=== PATIENT | male | born 1985 | race American Indian/Alaskan Native ===

== ENCOUNTER 2017-09-17 04:32 | Emergency (ER) | payer SELFPAY ==
[2017-09-17] MEDS ORDERED: Lidocaine 2% with EPINEPHrine 1:100,000 20 ML MDV INFILT ONE (04:33)
[2017-09-17] MEDS ORDERED: Diphtheria,Pertussis(Acell),Tetanus Vaccine 0.5 ML SDV IM ONE (06:22)
--- NOTE | 2017-09-17 06:29 | EDM.PDOC ---
ED HPI GENERAL MEDICAL PROBLEM - General Chief Complaint: Laceration Stated Complaint: FELL, HEAD INJURY Time Seen by Provider: 09/17/17 04:40 Source of Information: Reports: Patient, Family History Limitations: Reports: Other (Intoxicated.) - History of Present Illness INITIAL COMMENTS - FREE TEXT/NARRATIVE: Patient was drinking with his at home tonight and became intoxicated. He fell off of his barstool and hit the back of his head and got knocked out. He has a laceration on the back of his head. He is still intoxicated but is cooperative and is able to talk and communicate coherently. No other pain or complaints. Onset: Today Onset Date: 09/17/17 Onset Time: 04:00 Duration: Minutes: (40) Location: Reports: Head, Generalized Quality: Reports: Sharp Severity: Mild Improves with: Reports: None Worsens with: Reports: None Context: Reports: Other (Drinking and fell off barstool.) Associated Symptoms: Reports: Other (Intoxicated.) - Related Data Allergies Allergy/AdvReac Type Severity Reaction Status Date / Time No Known Allergies Allergy Verified 09/17/17 05:03 Home Meds: Home Meds NK [No Known Home Meds] 09/17/17 [History] Past Medical History - Past Health History Medical/Surgical History: Denies Medical/Surgical History Social & Family History - Family History Family Medical History: Noncontributory - Tobacco Use Smoking Status *Q: Never Smoker - Caffeine Use Caffeine Use: Reports: Coffee - Recreational Drug Use Recreational Drug Use: No Recreational Drug Type: Reports: Marijuana/Hashish Recreational Drug Use Frequency: Socially ED ROS GENERAL - Review of Systems Review Of Systems: See Below Constitutional: Reports: Other (Intoxicated.) HEENT: Reports: No Symptoms Respiratory: Reports: No Symptoms Cardiovascular: Reports: No Symptoms Endocrine: Reports: No Symptoms GI/Abdominal: Reports: No Symptoms : Reports: No Symptoms Musculoskeletal: Reports: No Symptoms Skin: Reports: Wound Neurological: Reports: No Symptoms Psychiatric: Reports: No Symptoms Hematologic/Lymphatic: Reports: No Symptoms Immunologic: Reports: No Symptoms ED EXAM, SKIN/RASH Exam: See Below Exam Limited By: Altered Mental Status (Intoxicated) General Appearance: Alert, WD/WN, No Apparent Distress Eye Exam: Bilateral Eye: EOMI, Normal Fundi, Normal Inspection, PERRL Ears: Normal External Exam, Normal Canal, Hearing Grossly Normal, Normal TMs Nose: Normal Inspection, Normal Mucosa, No Blood Throat/Mouth: Normal Inspection, Normal Lips, Normal Teeth, Normal Gums, Normal Oropharynx, Normal Voice, No Airway Compromise Head: Other (3 cm L shaped laceration in the posterior scalp.) Neck: Normal Inspection, Supple, Non-Tender, Full Range of Motion Respiratory/Chest: No Respiratory Distress, Lungs Clear, Normal Breath Sounds, No Accessory Muscle Use, Chest Non-Tender Cardiovascular: Normal Peripheral Pulses, Regular Rate, Rhythm, No Edema, No Gallop, No JVD, No Murmur, No Rub Peripheral Pulses: 4+: Posterior Tibial (L), Posterior Tibial (R), Dorsalis Pedis (L), Dorsalis Pedis (R) GI/Abdominal: Normal Bowel Sounds, Soft, Non-Tender, No Organomegaly, No Distention, No Abnormal Bruit, No Mass Back Exam: Normal Inspection, Full Range of Motion, NT Extremities: Normal Inspection, Normal Range of Motion, Non-Tender, No Pedal Edema, Normal Capillary Refill Neurological: Alert, Oriented, CN II-XII Intact, Normal Cognition, Normal Gait, Normal Reflexes, No Motor/Sensory Deficits Psychiatric: Normal Affect, Normal Mood Skin: Wound/Incision (3 cm L-shaped laceration posterior scalp.) Location, Skin: Head ED SKIN PROCEDURES - Laceration/Wound Repair Posterior Midline [place] Head Lac/Wound length In cm: 3 Appearance: Subcutaneous, Other (L shaped) Anesthetic Type: Local Local Anesthesia - Lidocaine (Xylocaine): 2% with EPI Local Anesthetic Volume: 3cc Skin Prep: Chlorhexidine (Hibiciens) Exploration/Debridement/Repair: Wound Explored, In a Bloodless Field, Explored to Base, No Foreign Material Found Closed with: Camilo (4) Course - Vital Signs Text/Narrative:: Uneventful ED course. Went over wound care and gave him an Adacel immunization. He will return to PCP to have camilo removed in [address] was normal and his labs were normal except for a blood alcohol of 230. Last Recorded V/S: Last Vital Signs Temp 36.7 C 09/17/17 04:35 Pulse 87 09/17/17 04:35 Resp 17 09/17/17 04:35 BP 138/86 09/17/17 04:35 Pulse Ox 95 09/17/17 04:35 - Orders/Labs/Meds Orders: Active Orders 24 hr Category Date Time Status Vaccines to be Administered [RC] PER UNIT ROUTINE Care 09/17/17 06:23 Ordered Head wo Cont [CT] Stat Exams 09/17/17 04:44 Taken Diphth,Pertuss(Acell),Tet Vac [Adacel] Med 09/17/17 06:22 Once 0.5 ml IM .ONCE ONE Labs: Laboratory Tests 09/17/17 09/17/17 09/17/17 Range/Units 04:55 04:55 04:55 WBC 4.7 (4.5-12.0) X10-3/uL RBC 4.56 (4.30-5.75) x10(6)uL Hgb 14.3 (11.5-15.5) g/dL Hct 40.8 (30.0-51.3) % MCV 89.6 (80-96) fL MCH 31.3 (27.7-33.6) pg MCHC 34.9 (32.2-35.4) g/dL RDW 11.9 (11.5-15.5) % Plt Count 191 (125-369) X10(3)uL MPV 9.5 (7.4-10.4) fL Neut % (Auto) 51.8 (46-82) % Lymph % (Auto) 38.3 H (13-37) % [place] % (Auto) 6.8 (4-12) % Eos % (Auto) 2 (1.0-5.0) % Baso % (Auto) 1 (0-2) % Neut # (Auto) 2.5 (1.6-8.3) # Lymph # (Auto) 1.8 (0.6-5.0) # [place] # (Auto) 0.3 (0.0-1.3) # Eos # (Auto) 0.1 (0.0-0.8) # Baso # (Auto) 0.0 (0.0-0.2) # Sodium 143 (135-145) mmol/L Potassium 3.6 (3.5-5.3) mmol/L Chloride 110 (100-110) mmol/L Carbon Dioxide 24 (23-29) mmol/L BUN 11 (5-20) mg/dL Creatinine 0.7 (0.6-1.3) mg/dL Est Cr Clr Drug Dosing TNP Estimated GFR (MDRD) > 60 (>60) BUN/Creatinine Ratio 15.7 (9-20) Glucose 112 (80-116) mg/dL Calcium 8.9 (8.6-10.2) mg/dL Total Bilirubin 0.1 (0.1-1.3) mg/dL AST 33 H (5-27) IU/L ALT 29 H (14-26) IU/L Alkaline Phosphatase 61 (56-112) IU/L Total Protein 7.6 (6.0-8.0) g/dL Albumin 4.5 (3.5-5.2) g/dL Globulin 3.1 g/dL Albumin/Globulin Ratio 1.5 Ethyl Alcohol 0.23 H* (<0.01) % Departure - Departure Time of Disposition: 06:36 Disposition: Home, Self-Care 01 Condition: Good Clinical Impression: Laceration, Concussion, Alcohol intoxication - Discharge Information Referrals: PCP,None [Primary Care Provider] - - My Orders Last 24 Hours: My Active Orders 09/17/17 04:44 Head wo Cont [CT] Stat 09/17/17 06:22 Diphth,Pertuss(Acell),Tet Vac [Adacel] 0.5 ml IM .ONCE ONE 09/17/17 06:23 Vaccines to be Administered [RC] PER UNIT ROUTINE - Assessment/Plan Last 24 Hours: My Active Orders 09/17/17 04:44 Head wo Cont [CT] Stat 09/17/17 06:22 Diphth,Pertuss(Acell),Tet Vac [Adacel] 0.5 ml IM .ONCE ONE 09/17/17 06:23 Vaccines to be Administered [RC] PER UNIT ROUTINE
[2017-09-17 06:57] VITALS: BP 110/59
== END 2017-09-17 06:40 | disposition home or self-care (01) ==
LOC: FB.ED 04:32
DX: S01.01XA Laceration without foreign body of scalp, initial encounter (principal); F10.129 Alcohol abuse with intoxication, unspecified; Z23 Encounter for immunization; Y90.1 Blood alcohol level of 20-39 mg/100 ml; W08.XXXA Fall from other furniture, initial encounter; Y92.009 Unspecified place in unspecified non-institutional (private) residence as the place of occurrence of the external cause
CPT/HCPCS: 12002; 36415; 70450; 80053; 85025; 90472; 90715; 99283; G0480; 12001

== ENCOUNTER 2018-03-09 16:00 | Emergency (ER) | payer OTHER ==
[2018-03-09] MEDS ORDERED: Ketorolac 60 MG/2 ML SDV IM ONE (16:08)
[2018-03-09 16:17] VITALS: BP 142/90
--- NOTE | 2018-03-09 16:19 | EDM.PDOC ---
ED HPI GENERAL MEDICAL PROBLEM - General Stated Complaint: INJURED RT HAND AT WORK Time Seen by Provider: 03/09/18 16:03 Source of Information: Reports: Patient History Limitations: Reports: No Limitations - History of Present Illness INITIAL COMMENTS - FREE TEXT/NARRATIVE: c/o R hand injury working, fell, put out R hand to break fall, landed on a screw pointing upward, screw was ~3" long, pt immediately pulled his hand out, pain now at 5th MC does not remember when he had his last Td, last Td given 6m ago as per [employer] - Related Data Allergies Allergy/AdvReac Type Severity Reaction Status Date / Time No Known Allergies Allergy Verified 03/09/18 16:12 Home Meds: Home Meds Amoxicillin/Clavulanate K [Augmentin 875-125 MG] 1 tab PO BID #14 tablet [Rx] Past Medical History - Past Health History Medical/Surgical History: Denies Medical/Surgical History Social & Family History - Family History Family Medical History: Noncontributory - Caffeine Use Caffeine Use: Reports: Coffee ED ROS GENERAL - Review of Systems Review Of Systems: See Below Constitutional: Reports: No Symptoms HEENT: Reports: No Symptoms Respiratory: Reports: No Symptoms Cardiovascular: Reports: No Symptoms Endocrine: Reports: No Symptoms GI/Abdominal: Reports: No Symptoms : Reports: No Symptoms Musculoskeletal: Reports: Hand Pain Skin: Reports: No Symptoms Neurological: Reports: No Symptoms Psychiatric: Reports: No Symptoms Hematologic/Lymphatic: Reports: No Symptoms Immunologic: Reports: No Symptoms ED EXAM, GENERAL - Physical Exam Exam: See Below Exam Limited By: No Limitations General Appearance: Alert, WD/WN, Moderate Distress Respiratory/Chest: No Respiratory Distress Cardiovascular: Regular Rate, Rhythm Back Exam: Normal Inspection, Full Range of Motion, NT Extremities: Other (L hand with 4 mm entry wound at hypothenar eminence over 5th MT, no bleeding, no f.b., tender over 5th MT, less tender over adjacent soft tissue, FROM fingers and wrist, m/s intact) Course - Vital Signs Last Recorded V/S: Last Vital Signs Temp 36.2 C 03/09/18 16:12 Pulse 69 03/09/18 16:12 Resp 16 03/09/18 16:12 BP 142/90 H 03/09/18 16:12 Pulse Ox 100 03/09/18 16:12 - Orders/Labs/Meds Orders: Active Orders 24 hr Category Date Time Status Hand Comp Min 3V Rt [CR] Stat Exams 03/09/18 16:09 Ordered Meds: Medications Discontinued Medications Generic Name Dose Route Start Last Admin Trade Name Lloyd PRN Reason Stop Dose Admin Ketorolac Tromethamine 60 mg 03/09/18 16:08 03/09/18 16:25 Toradol IM 03/09/18 16:09 60 mg ONETIME ONE Administration - Re-Assessments/Exams Free Text/Narrative Re-Assessment/Exam: 03/09/18 16:52 XR R hand, neg, periosteum intact, no f.b., works construction, 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, pt agrees numbness is much less, less pain after the Toradol Departure - Departure Time of Disposition: 16:53 Disposition: Home, Self-Care 01 Condition: Good Clinical Impression: Puncture wound, hand Qualifiers: Foreign body presence: without foreign body Laterality: right - Discharge Information Prescriptions: Amoxicillin/Clavulanate K [Augmentin 875-125 MG] 1 tab PO BID #14 tablet Instructions: Puncture Wound Referrals: PCP,None [Primary Care Provider] - Additional Instructions: For pain and inflammation and swelling, take ibuprofen 200 mg 3 tabs and acetaminophen 500 mg 2 tabs 4 times a day for 7 days, longer if needed. For potential infection, take Augmentin 875/125 mg 1 tab 2 times a day for 7 days. No work for 3 days. Use ice for 10 minutes 4 times a day for 2 days. Do not use hand for next 3 days. Go to Emergency Room in [place] if you have increase in pain, redness, swelling, warmth, fever or drainage as the hand surgeon may need to open the wound to clean it out. See your physician here in town if you are not much better in 4 days and back to normal in 7 days. - My Orders Last 24 Hours: My Active Orders 03/09/18 16:09 Hand Comp Min 3V Rt [CR] Stat - Assessment/Plan Last 24 Hours: My Active Orders 03/09/18 16:09 Hand Comp Min 3V Rt [CR] Stat
--- NOTE | 2018-03-10 09:08 | CR ---
INDICATION: Fell onto screw, pain at mid MC. RIGHT HAND: Three views of the right hand were obtained and revealed soft tissue swelling overlying the distal metacarpals dorsally. An underlying bone or joint abnormality was not identified - no acute fracture or dislocation was seen. MTDD
== END 2018-03-09 17:07 | disposition home or self-care (01) ==
LOC: FB.ED 16:00
DX: S61.432A Puncture wound without foreign body of left hand, initial encounter (principal); W19.XXXA Unspecified fall, initial encounter; W22.8XXA Striking against or struck by other objects, initial encounter
CPT/HCPCS: 73130; 96372; 99283; J1885

== ENCOUNTER 2020-06-09 11:44 | Emergency (ER) | payer OTHER ==
[2020-06-09] MEDS ORDERED: Ondansetron 4 MG Tab.DIS PO ONE ×2 (11:45→14:58)
[2020-06-09] MEDS ORDERED: HYDROmorphone 2 MG/ML SDV ONE (11:50)
--- NOTE | 2020-06-09 11:51 | EDM.PDOC ---
ED HPI GENERAL MEDICAL PROBLEM - General Stated Complaint: TRAUMA ALERT Time Seen by Provider: 06/09/20 11:47 Source of Information: Reports: Patient History Limitations: Reports: No Limitations - History of Present Illness INITIAL COMMENTS - FREE TEXT/NARRATIVE: pt was brought in by his poss , he had accidental fall off 6 fee flour , c/o sever right ankle/heal pain and head injury, no LOC or any other injuries, denies any neuro/ CV/ resp sx or any medical concerns. - Related Data Allergies Allergy/AdvReac Type Severity Reaction Status Date / Time No Known Allergies Allergy Verified 06/09/20 12:51 Home Meds: Home Meds oxyCODONE HCl/Acetaminophen [Percocet 5-325 mg Tablet] 1 - 2 each PO Q6HR PRN #20 tablet 06/09/20 [Rx] Past Medical History - Past Health History Medical/Surgical History: Denies Medical/Surgical History Social & Family History - Family History Family Medical History: Noncontributory - Caffeine Use Caffeine Use: Reports: Coffee ED ROS GENERAL - Review of Systems Review Of Systems: See Below Constitutional: Reports: No Symptoms. Denies: Fever, Chills HEENT: Reports: No Symptoms Respiratory: Reports: No Symptoms Cardiovascular: Reports: No Symptoms GI/Abdominal: Reports: No Symptoms Musculoskeletal: Reports: Joint Pain Skin: Reports: No Symptoms Neurological: Reports: No Symptoms ED EXAM, GENERAL - Physical Exam Exam: See Below Exam Limited By: No Limitations General Appearance: Moderate Distress, Severe Distress Eye Exam: Bilateral Eye: Normal Inspection Ears: Normal External Exam, Normal TMs Nose: Normal Inspection Throat/Mouth: Normal Inspection, Normal Oropharynx Head: Normocephalic, Other (pt has swelling and contusion over the right eyebrow/ forhead area ) Neck: Normal Inspection, Supple, Non-Tender Respiratory/Chest: No Respiratory Distress, Lungs Clear Cardiovascular: Normal Peripheral Pulses, Regular Rate, Rhythm GI/Abdominal: Normal Bowel Sounds, Soft, Non-Tender Extremities: Other (tender eric round right ankle. ) Neurological: Alert, Oriented, CN II-XII Intact Skin Exam: Warm, Dry, Other (skin is intact .) Course - Vital Signs Text/Narrative:: head CT shows no acute findings , xrays shows calcaneus fracture. pt is comfortable after IV Dilaudid . surgical boot with lots of padding was applied at heel area , crutches were provided. Dr. Morales was consulted and would like to follow up with him at his at clinic this week. rest and elevation were advised and Rx on percocet was given. - Orders/Labs/Meds Orders: Active Orders 24 hr Category Date Time Status Ang Lower Extremity Rt [CT] Stat Exams 06/09/20 13:35 Ordered Knee 1V or 2V Rt [CR] Stat Exams 06/09/20 13:13 Taken Sodium Chloride 0.9% [Normal Saline] 1,000 ml Med 06/09/20 11:52 Active IV .BOLUS Medication Orders Sodium Chloride (Normal Saline) 1,000 mls @ 999 drops/hr IV .BOLUS ONE Stop: 06/10/20 02:52 Last Admin: 06/09/20 12:16 Dose: 999 drops/hr Documented by: CIRILO Labs: Laboratory Tests 06/09/20 06/09/20 Range/Units 11:50 11:50 WBC 8.4 (4.5-12.0) X10-3/uL RBC 4.80 (4.30-5.75) x10(6)uL Hgb 14.8 (13.5-17.8) g/dL Hct 44.9 (30.0-51.3) % MCV 93.6 (80-96) fL MCH 30.9 (27.7-33.6) pg MCHC 33.0 (32.2-35.4) g/dL RDW 11.9 (11.5-15.5) % Plt Count 290 (125-369) X10(3)uL MPV 8.9 (7.4-10.4) fL Neut % (Auto) 58.1 (46-82) % Lymph % (Auto) 33.1 (13-37) % [place] % (Auto) 7.3 (4-12) % Eos % (Auto) 1 (1.0-5.0) % Baso % (Auto) 1 (0-2) % Neut # (Auto) 4.9 (1.6-8.3) # Lymph # (Auto) 2.8 (0.6-5.0) # [place] # (Auto) 0.6 (0.0-1.3) # Eos # (Auto) 0.1 (0.0-0.8) # Baso # (Auto) 0.0 (0.0-0.2) # Sodium 140 (135-145) mmol/L Potassium 3.8 (3.5-5.3) mmol/L Chloride 102 (100-110) mmol/L Carbon Dioxide 27 (21-32) mmol/L BUN 10 (7-18) mg/dL Creatinine 0.9 (0.70-1.30) mg/dL Est Cr Clr Drug Dosing TNP Estimated GFR (MDRD) > 60 (>60) BUN/Creatinine Ratio 11.1 (9-20) Glucose 132 H (80-116) mg/dL Calcium 8.6 (8.6-10.2) mg/dL Total Bilirubin 0.5 (0.1-1.3) mg/dL AST 22 (5-25) IU/L ALT 27 (12-36) U/L Alkaline Phosphatase 80 (56-112) IU/L Total Protein 8.1 H (6.0-8.0) g/dL Albumin 4.2 (3.5-5.2) g/dL Globulin 3.9 g/dL Albumin/Globulin Ratio 1.1 Meds: Medications Generic Name Dose Route Start Last Admin Trade Name Freq PRN Reason Stop Dose Admin Sodium Chloride 1,000 mls @ 999 drops/hr 06/09/20 11:52 06/09/20 12:16 Normal Saline IV 06/10/20 02:52 999 drops/hr .BOLUS ONE Administration Discontinued Medications Generic Name Dose Route Start Last Admin Trade Name Freq PRN Reason Stop Dose Admin Hydromorphone HCl 1 mg 06/09/20 11:52 06/09/20 12:14 Dilaudid IVPUSH 06/09/20 11:53 1 mg ONETIME ONE Administration Hydromorphone HCl Confirm 06/09/20 11:50 06/09/20 12:14 Dilaudid Administered 06/09/20 11:51 Not Given Dose 2 mg .ROUTE .STK-MED ONE Hydromorphone HCl 1 mg 06/09/20 12:21 06/09/20 12:26 Dilaudid IVPUSH 06/09/20 12:22 1 mg ONETIME ONE Administration Hydromorphone HCl 1 mg 06/09/20 13:03 06/09/20 13:05 Dilaudid IVPUSH 06/09/20 13:04 1 mg ONETIME ONE Administration Hydromorphone HCl 1 mg 06/09/20 13:37 06/09/20 13:42 Dilaudid IVPUSH 06/09/20 13:38 2 mg ONETIME ONE Administration Departure - Departure Time of Disposition: 13:06 Disposition: Home, Self-Care 01 Clinical Impression: Avulsion fracture of right calcaneus - Discharge Information Prescriptions: oxyCODONE HCl/Acetaminophen [Percocet 5-325 mg Tablet] 1 - 2 each PO Q6HR PRN #20 tablet PRN Reason: Pain - My Orders Last 24 Hours: My Active Orders 06/09/20 11:52 Sodium Chloride 0.9% [Normal Saline] 1,000 ml IV .BOLUS 06/09/20 13:13 Knee 1V or 2V Rt [CR] Stat 06/09/20 13:35 Ang Lower Extremity Rt [CT] Stat - Assessment/Plan Last 24 Hours: My Active Orders 06/09/20 11:52 Sodium Chloride 0.9% [Normal Saline] 1,000 ml IV .BOLUS 06/09/20 13:13 Knee 1V or 2V Rt [CR] Stat 06/09/20 13:35 Ang Lower Extremity Rt [CT] Stat
[2020-06-09] MEDS ORDERED: HYDROmorphone 2 MG/ML SDV IVPUSH ONE ×4 (11:52→13:37)
[2020-06-09] MEDS ORDERED: Sodium Chloride 0.9% 1,000 ML IV ONE (11:52)
--- NOTE | 2020-06-09 13:34 | CT ---
INDICATION: Head trauma. CT HEAD WITHOUT CONTRAST: Spiral 3.75 mm axial sections were obtained through the brain without contrast with sagittal and coronal reconstructions and axial reconstructions 06/09/20 and compared with 09/17/17. Total exam DLP was 1425.39 mGy-cm. Mastoid air cells were well aerated. There is marked thickening of the linings of the maxillary antra bilaterally with an air-fluid level and frothy material within the left maxillary antrum. Sphenoidal and ethmoidal air cells were well aerated. Thickening of the lining of the left frontal air cell is noted. Nasal septal deviation to the left is noted. No cranial fracture site was identified. The orbits appear to be intact. No cranial fracture site was identified. No shift of midline structures, ventricular abnormalities or change in the appearance of the brain was suggested. No bleeding site or hematoma was seen. A small low-density abnormality in the occipital lobe on the left may simply represent an extension of the occipital horn of the left lateral ventricle and was present previously. IMPRESSION: 1. No acute intracranial abnormality. 2. Bilateral maxillary and left frontal sinusitis - possibly acute. MTDD
--- NOTE | 2020-06-09 13:36 | CR ---
INDICATION: Fall. RIGHT CALCANEUS: Axial and lateral views of the calcaneus reveal a comminuted fracture of the calcaneus after the midportion of the calcaneus with suggestion of some impaction of fracture fragments with deformity of moderate degree. IMPRESSION: Comminuted calcaneal fracture with some deformity. Report was called to Dr. Wood at 12:30 hours. EVETTE
--- NOTE | 2020-06-09 13:38 | CR ---
INDICATION: Ankle injury. RIGHT ANKLE: Frontal and lateral views of the right ankle reveal a comminuted fracture of the calcaneus extending through the subtalar joint area posteriorly with some minimal impaction of fracture fragments noted. The ankle mortise appeared grossly intact. The report was called to Dr. Wood at 12:30 hours. EVETTE
[2020-06-09] MEDS ORDERED: Ondansetron 4 MG Tab.DIS ONE (14:58)
[2020-06-09 15:54] VITALS: BP 158/114; PULSE 123
--- NOTE | 2020-06-09 19:22 | CR ---
INDICATION: Fall. RIGHT KNEE: Frontal and lateral views of the right knee revealed a comminuted fracture of the inferolateral aspect of the patella with [id number] separation of the comminuted fracture fragments. Overall they appear to be in adequate position and alignment. Joint effusion is suggested. No other acute bone or joint abnormality was identified. MTDD
--- NOTE | 2020-06-09 19:27 | CT ---
CT RIGHT LOWER EXTREMITY INDICATION: Heel fracture. Spiral 2.5 mm axial sections were obtained through the right foot with sagittal and coronal reconstructions revealing a rather severely comminuted fracture through the mid portion of the mid and distal portion of the calcaneus with relatively minimal distraction of fracture fragments. The subtalar joints appear to be largely intact. The talus appears to be intact. The ankle mortise appears to be intact. IMPRESSION: Severely comminuted somewhat V or U shaped fracture through the mid and anterior--distal portion of the calcaneus with the subtalar joint areas largely intact. MTDD
== END 2020-06-09 14:45 | disposition home or self-care (01) ==
LOC: FB.ED 11:44
DX: S92.001A Unspecified fracture of right calcaneus, initial encounter for closed fracture (principal); S82.001A Unspecified fracture of right patella, initial encounter for closed fracture; W17.89XA Other fall from one level to another, initial encounter; Y92.89 Other specified places as the place of occurrence of the external cause; Y99.0 Civilian activity done for income or pay
CPT/HCPCS: 36415; 70450; 73560; 73600; 73650; 73700; 80053; 85025; 96374; 96376; 99284; A9270; J1170; J7030

== ENCOUNTER 2021-06-15 16:53 | Emergency (ER) | payer SELFPAY ==
[2021-06-15] MEDS ORDERED: Cephalexin 500 MG Cap PO ONE (16:54)
[2021-06-15] MEDS ORDERED: cefTRIAXone 1 GM Vial IM ONE (17:18)
[2021-06-15] MEDS ORDERED: Bacitracin Oint 1 GM U/D Packet TOP ONE (17:18)
[2021-06-15 17:21] VITALS: BP 143/90; PULSE 82
--- NOTE | 2021-06-15 17:25 | EDM.PDOC ---
ED HPI GENERAL MEDICAL PROBLEM - General Chief Complaint: Skin Complaint Stated Complaint: RIGHT LEG WOUND/SWELLING Time Seen by Provider: 06/15/21 17:19 Source of Information: Reports: Patient History Limitations: Reports: No Limitations - History of Present Illness INITIAL COMMENTS - FREE TEXT/NARRATIVE: Patient sustained abrasions to his right [place] @1 week ago after he ran over some sticks with a stereotyper helper. The stick fragments were thrown into this right lower leg causing the abrasions. He had been applying antibiotic ointment initially, but then stopped. Patient has though been keeping the wound clean and changing bandages daily. Yesterday he developed right medial calf pain and redness which worsened today and then this evening noticed a red streak up his right inner thigh. Denies F/C. No prior h/o MRSA or Diabetes. Location: Reports: Lower Extremity, Right Right Lower Leg Pain Score (Numeric/FACES): 9 - Related Data Allergies Allergy/AdvReac Type Severity Reaction Status Date / Time No Known Allergies Allergy Verified 06/09/20 12:51 Home Meds: Home Meds cephALEXin [Keflex] 500 mg PO QID #20 cap 06/15/21 [Rx] Past Medical History - Past Health History Medical/Surgical History: Denies Medical/Surgical History - Past Surgical History Musculoskeletal Surgical History: Reports: Other (See Below) Other Musculoskeletal Surgeries/Procedures:: ORIF of right calcaneous and patella fractures @2019 Social & Family History - Family History Family Medical History: No Pertinent Family History - Caffeine Use Caffeine Use: Reports: Coffee ED ROS GENERAL - Review of Systems Review Of Systems: Comprehensive ROS is negative, except as noted in HPI. ED EXAM, SKIN/RASH Exam: See Below Exam Limited By: No Limitations General Appearance: Alert, WD/WN, No Apparent Distress Throat/Mouth: No Airway Compromise Head: Atraumatic, Normocephalic Neck: Full Range of Motion Respiratory/Chest: No Respiratory Distress Peripheral Pulses: 3+: Dorsalis Pedis (R) Extremities: Normal Range of Motion, Normal Capillary Refill Neurological: Alert, Normal Cognition Psychiatric: Normal Affect, Normal Mood Skin: Other (Abrasions to anterior right lower leg, no foreign bodies, fluctuance, or drainage. There is erythema, warmth, and tenderness to right medial calf and a red streak proximal to this extending up right inner thigh.) Course - Vital Signs Last Recorded V/S: Last Vital Signs Temp 36.9 C 06/15/21 17:13 Pulse 82 06/15/21 17:13 Resp 16 06/15/21 17:13 BP 143/90 H 06/15/21 17:13 Pulse Ox 97 06/15/21 17:13 - Orders/Labs/Meds Meds: Medications Discontinued Medications Generic Name Dose Route Start Last Admin Trade Name Lloyd PRN Reason Stop Dose Admin Bacitracin 1 dose 06/15/21 17:18 06/15/21 17:27 Bacitracin Oint 1 Gm U/D Packet TOP 06/15/21 17:19 1 dose ONETIME ONE Administration Ceftriaxone Sodium 1 gm 06/15/21 17:18 06/15/21 17:23 Ceftriaxone 1 Gm Vial IM 06/15/21 17:19 1 gm ONETIME ONE Administration - Re-Assessments/Exams Free Text/Narrative Re-Assessment/Exam: 06/15/21 17:29 Rocephin 1g IM given. Departure - Departure Time of Disposition: 17:37 Disposition: Home, Self-Care 01 Condition: Good Clinical Impression: Cellulitis of right lower leg, Acute lymphangitis of thigh - Discharge Information *PRESCRIPTION DRUG MONITORING PROGRAM REVIEWED*: No *COPY OF PRESCRIPTION DRUG MONITORING REPORT IN PATIENT ROGERS: Not Applicable Prescriptions: cephALEXin [Keflex] 500 mg PO QID #20 cap Instructions: Lymphangitis, Adult, Cellulitis, Adult, [id number] Referrals: Linda Brown TUR[employer] FARMER [Nurse Practitioner] - 2 Days Forms: ED Department Discharge Additional Instructions: Fill the rest of the Keflex prescription at [facility] in [place] and take as directed. Follow up at [facility] in 2 days for a recheck. Return to the ER if symptoms worsen. Sepsis Event Note (ED) - Focused Exam Vital Signs: Vital Signs Temp Pulse Resp BP Pulse Ox 06/15/21 17:13 36.9 C 82 16 143/90 H 97
== END 2021-06-15 17:40 | disposition home or self-care (01) ==
LOC: FB.ED 16:53
DX: L03.115 Cellulitis of right lower limb (principal); L03.125 Acute lymphangitis of right lower limb
CPT/HCPCS: 96372; 99283; A9270; J0696

== ENCOUNTER 2025-03-16 23:35 | Emergency (ER) | payer SELFPAY ==
[2025-03-17] MEDS: hydrOXYzine HCl 50 MG/ML SDV IM ONE (00:32)
[2025-03-17 00:33] VITALS: BP 144/106; PULSE 138
[2025-03-17] MEDS: Morphine 4 MG/ML VIAL IM ONE (00:33)
== END 2025-03-17 01:00 | disposition home or self-care (01) ==
LOC: FB.ED 23:35
DX: S06.0X0A Concussion without loss of consciousness, initial encounter (principal); S01.01XA Laceration without foreign body of scalp, initial encounter; S01.312A Laceration without foreign body of left ear, initial encounter; X99.0XXA Assault by sharp glass, initial encounter
CPT/HCPCS: 12002; 12011; 96372; 99283; J2270; J3410